=== PATIENT | female | born 1995 | race Caucasian/White ===

== ENCOUNTER 2022-08-11 07:34 | Emergency (ER) | payer MEDICAID ==
[~2022-08-11] VITALS: Ht 157.5 cm; Wt 53.0 kg
[2022-08-11 07:42] VITALS: BP 114/73
[2022-08-11 08:32] LABS: CLARITY URINE CLEAR (CLEAR); COLOR URINE YELLOW (YELLOW); KETONES URINE NEGATIVE (NEGATIVE); LEUKOCYTE ESTERASE URINE 3+ (NEGATIVE); NITRITE URINE NEGATIVE (NEGATIVE); OCCULT BLOOD URINE TRACE (NEGATIVE); PH URINE 6.5 (4.5-8.0); PROTEIN URINE NEGATIVE (NEGATIVE); SPECIFIC GRAVITY URINE 1.002 (1.005-1.030); UROBILINOGEN URINE 0.2 E.U./dL (0.2-1.0)
[2022-08-11] MEDS ORDERED: DOXY150T9 PO (08:57)
[2022-08-11] MEDS ORDERED: DOXYCYCLINE HYCLATE 100MG CAPSULE PO ONE (09:00)
[2022-08-11] MEDS ORDERED: CEFTRIAXONE SODIUM 1 G/VIAL IM ONE (09:00)
[2022-08-11] MEDS ORDERED: FLUCONAZOLE 150MG TABLET PO ONE (09:00)
== END 2022-08-11 10:17 | disposition home or self-care (01) ==
LOC: ER 07:57
DX: B37.31 Acute candidiasis of vulva and vagina (principal); A64 Unspecified sexually transmitted disease
CPT/HCPCS: 81003; 96372; 99283; J0696